=== PATIENT | female | born 1995 | race Caucasian/White ===

== ENCOUNTER 2019-04-11 15:49 | Emergency (ER) | payer OTHER ==
[~2019-04-11] VITALS: Ht 149.9 cm; Wt 50.3 kg
[2019-04-11 17:33] VITALS: Ht 149.9 cm; Wt 50.3 kg
[2019-04-11 20:04] VITALS: BP 128/81
== END 2019-04-11 20:04 | disposition home or self-care (01) ==
LOC: ED 15:49
DX: J11.1 Influenza due to unidentified influenza virus with other respiratory manifestations (principal)
CPT/HCPCS: 87804